=== PATIENT | male | born 1935 | race Caucasian/White ===

== ENCOUNTER → 2016-12-24 | Outpatient (CLI) | payer MEDICARE, OTHER ==
--- NOTE | 2016-12-24 15:28 | RADRPT ---
PROCEDURE: XR Right hip and pelvis. CLINICAL INDICATION: Right hip pain. Pelvic pain. Postop. TECHNIQUE: Two views. Frontal pelvis and lateral right hip. COMPARISON: No prior studies are available for comparison. FINDINGS: There is no fracture or dislocation. The soft tissues are normal. There is a right hip hemiarthroplasty which appears satisfactory. There are moderate degenerative changes of the left hip with joint space narrowing and osteophytes. There is no lytic or blastic lesion. The upper pelvis is not completely included on the image. IMPRESSION: 1. Satisfactory postoperative appearance of the right hip. 2. Moderate degenerative changes of the left hip. RPTAT: QQ .Tony Almeida MD, MD Date Time Electronically viewed and signed by .Tony Almeida MD, MD on 12/24/2016 15:28 .R/
--- NOTE | 2016-12-24 20:09 | HKNOTE ---
DATE OF SERVICE: 12/24/2016 MAIN COMPLAINT: 1. Pain in the lower back with radiation to the right buttocks. 2. Inability to get around. HISTORY OF MAIN COMPLAINT: The patient is a 81-year-old male who has a long history of problems wit h his lower back. He has had 3 surgeries on his spine starting 2010. The patient was under pain management before he fractured his right hip. On 11/22/2015, the patient fell while he was on vacation in [facility]. He was evacuated to [facility], where he was found to have a femoral neck fracture. Hemiarthroplasty of the hip was performed by Dr. Tommy eng. The patient seemed to recover quite well from the surgery for the first few days. Then since then, he has had extremely severe pain. The patient has been on chronic pain management for his back. He has been on heavy doses of opioids starting way before he had the hip fracture. He is given the opioids for his back. He is taking P ercocet 10/325 five to 10 tablets a day. Before the hip surgery, he was not under the care of Pain Management. Since then, he has become a patient for pain management under care of Dr. Miki de leon and Dr. Irving Maradiaga. His main complaint is in his right buttocks. There is no numbness or tingling in his leg. He did h ave numbness and tingling before his back surgery stretching entirely down the right leg. He recent ly had EMGs and nerve conduction studies of his lower extremities, and they were reported as being n ormal. PAST MEDICAL HISTORY: 1. Kidney failure from diabetes. 2. Hypertension, under control. 3. Stroke in 04/2016. 4. Diabetes. PAST SURGICAL HISTORY: Left arm surgeries x2 in the . Lumbar spine surgery 2012, lumbar spine surgery 2010, lumbar spine surgery for removal of hardware 2012. FAMILY HISTORY: Noncontributory. SYSTEMS REVIEW: Failing vision, hypertension, has passed kidney stone. Otherwise negative. HABITS: The patient quit smoking in his 30s. Alcohol intake: None. HERBARIUM WORKER: Dr. Brian Cook, [address] [place] [address]. PHYSICAL EXAMINATION: GENERAL: The patient comes in with his . He has a walker. He can barely walk without the walk er because of his pain. Note, however, that he is able to put full weight on his right leg without much discomfort. VITAL SIGNS: Height 6 feet 1 inch. Weight 273 pounds. Blood pressure 145/65, temperature 97.8. GAIT: The patient comes in with his , who helps him a great deal. The patient is barely able t o get up and get to the examination couch with his walker, but as noted above, he does put full weig ht on the leg. RIGHT HIP: A full range of motion without any pain. NEUROLOGICAL: Lower extremities are normal with straight-leg raising negative bilaterally at 75 deg jazlyn. IMAGING: Plain x-rays of his pelvis and right hip obtained today show that he has had a hemiarthrop lasty of the right hip. The components appear to be well attached to the bone, and the acetabular c omponent appears to be well sized. The leg lengths appear to be equal. DISCUSSION: The patient is advised that I do not normally see other surgeon's complicated patients, but since he is here today, I did evaluate him. In my professional opinion, the right hip hemiarthroplasty is not the source of his pain whatsoever. Hip pain is generally appreciated in the anterior groin, which he does not have. The patient's pain is completely in keeping with his long history now of low back pain. He was advi sed that in my opinion he should not allow Dr. Lang to perform a revision hip replacement on the right hip. Sometimes hemiarthroplasties become painful, but he has no pain whatsoever in his groin and does not need to have a revision of the hip replacement. The patient is advised that all his pain is coming from his lumbar spine, and he should return to [facility] pain management doctors for further management. Dictated By: SAMIA CRISTOBAL/XU Conf#: [id number] DID#: [id number]
== END | disposition home or self-care (01) ==
LOC: HKI 13:47
DX: M54.16 Radiculopathy, lumbar region (principal); M54.5 Low back pain; M25.559 Pain in unspecified hip; E11.22 Type 2 diabetes mellitus with diabetic chronic kidney disease; Z86.73 Personal history of transient ischemic attack (TIA), and cerebral infarction without residual deficits; Z87.891 Personal history of nicotine dependence
CPT/HCPCS: 73502; G0463